=== PATIENT | male | born 2005 | race Caucasian/White ===

== ENCOUNTER 2024-04-16 03:10 | Outpatient (CLI) | payer OTHER, SELFPAY | END 2024-04-16 03:11 | disposition home or self-care (01) | PROVIDERS: Visit Provider Family Medicine | DX: R11.2 Nausea with vomiting, unspecified (principal); R19.7 Diarrhea, unspecified | CPT/HCPCS: A0425; A0427 ==

== ENCOUNTER 2024-04-16 03:39 | Emergency (ER) | payer OTHER, SELFPAY ==
[2024-04-16 03:41] VITALS: BP 108/73; PULSE 98; RESP 18; TEMP 36.8; O2SAT 99; BMI 20.4
[2024-04-16] MEDS: LOPERAMIDE HCL 2 MG CAPSULE 4 MG PO (04:14)
--- NOTE | 2024-04-16 04:16 | ED.GENADULT ---
HPI - General Adult General Chief complaint: Nausea/Vomiting Stated complaint: Nausea and vomitting Time Seen by Provider: 04/16/24 03:44 Source: patient Mode of arrival: EMS Limitations: no limitations History of Present Illness HPI narrative: 19-year-old local college student presents the emergency department by EMS because of nausea and vomiting. No trauma or injury, no abdominal pain. Was given 4 mg of Zofran by EMS and is already feeling a lot better. Had had nausea and vomiting and a couple of bouts of diarrhea over the past 2 hours prior to calling EMS. Housemates with diarrhea as well. No fever. Not any a compromised. No excessive alcohol usage, no regular marijuana use. No prior abdominal surgeries. No bloody stools, bloody vomit. Tried taking a couple of antacid tablets and some Tylenol with no improvement in symptoms. Had been eating and drinking normally up until a couple of hours ago. Interestingly has a history of stroke, no obvious etiology was found. Takes 81 mg aspirin as a result. Thorough workup. No other long-term medications or allergies. ROS is notable for the GI symptoms as above only, otherwise denies times 12 systems. Related Data Home Medications ?Medication ?Instructions ?Recorded ?Confirmed aspirin 81 mg capsule 81 mg PO DAILY 04/16/24 04/16/24 Allergies Allergy/AdvReac Type Severity Reaction Status Date / Time No Known Drug Allergies Allergy Verified 04/16/24 03:45 Exam Const: Vital Signs, click to edit/add: Vital Signs - 24 hr 04/16/24 03:41 Temperature 98.3 F Pulse Rate [Right Pulse Oximeter] 98 Respiratory Rate 18 Blood Pressure [Le ft Upper Arm] 108/73 Pulse Oximetry 99 Oxygen Delivery Me thod Room Air Documenting provider has reviewed patient's vital signs: yes Common normals: no apparent distress and alert General appearance: cooperative and well kempt HENMT: Common normals: normocephalic, moist oral mucous membranes and oropharynx normal Head and scalp: normocephalic Eye: Common normals: conjunctivae normal General eye: normal appearance of both eyes Conjunctiva: conjunctiva(e) normal Neck & C-Spine: General: normal visual inspection Resp: Common normals: normal respiratory effort, no use of accessory muscles and clear to auscultation bilaterally Effort & inspection: able to speak in complete sentences Auscultation: clear to auscultation bilaterally Cardio: Common normals: regular rate, regular rhythm, S1 normal heart sound, S2 normal heart sound and no murmurs Rate: regular rate Rhythm: regular rhythm Heart sounds: S1 normal and S2 normal GI: Common normals: Normal to inspection, nondistended, normoactive bowel sounds present, soft to palpation, non-tender, no hepatosplenomegaly and no masses Inspection: normal to inspection Palpation: soft and no hepatosplenomegaly Extremity: Common normals: normal to inspection and no pedal edema Neuro: Sensorium/orientation: alert Speech: speech normal Motor exam: no movement abnormalities noted Psych: Appearance: well kempt Attitude: engaged Activity/motor behavior: appropriate eye contact Mood and affect: euthymic mood Insight: insight good Judgement: judgment good Skin: Common normals: no rashes or lesions noted General skin exam: no rashes or lesions noted Course Course ED Course: 19-year-old male with nausea vomiting and diarrhea, similar symptoms and household contacts. Suspicious for viral gastroenteritis. Less likely to be pancreatitis, obstructive process, musculoskeletal an aunt, cannabinoid hyperemesis, colitis or other GI abnormality. Patient is doing much better after Zofran. Will perform oral fluid challenge. Give 4 mg of Imodium. If this is successful, we will plan to discharge on Zofran. Would like for him to set an alarm for 6 hours to repeat his dose of Zofran automatically, then p.r.n. as needed afterwards. Will not likely need subsequent Imodium dosing but usage discussed if needed. Push fluids. Alarm symptoms reviewed that would warrant ED presentation. Written instructions provided. Re-evaluate only if needed if fluid challenges unsuccessful. Vital Signs Vital signs: Initial Vital Signs Temperature 98.3 F 04/16/24 03:41 Temperature Source Temporal Artery Scan 04/16/24 03:41 Pulse Rate 98 04/16/24 03:41 Respiratory Rate 18 04/16/24 03:41 Blood Pressure 108/73 04/16/24 03:41 Blood Pressure Mean 84 04/16/24 03:41 Blood Pressure Position Sitting 04/16/24 03:41 Pulse Oximetry 99 04/16/24 03:41 Oxygen Delivery Method Room Air 04/16/24 03:41 Vital Signs Temperature 98.3 F 04/16/24 03:41 Pulse Rate 98 04/16/24 03:41 Respiratory Rate 18 04/16/24 03:41 Blood Pressure 108/73 04/16/24 03:41 Pulse Oximetry 99 04/16/24 03:41 Oxygen Delivery Method Room Air 04/16/24 03:41 Temperature 98.3 F 04/16/24 03:41 Pulse Rate 98 04/16/24 03:41 Respiratory Rate 18 04/16/24 03:41 Blood Pressure 108/73 04/16/24 03:41 Pulse Oximetry 99 04/16/24 03:41 Oxygen Delivery Method Room Air 04/16/24 03:41 Medications Administered Medications: Generic Name Dose Route Start Last Admin Trade Name Freq PRN Reason Stop Dose Admin Loperamide HCl 4 mg 04/16/24 04:12 04/16/24 04:14 Loperamide Hcl 2 Mg Capsule PO 04/16/24 04:13 4 mg ONCE ONE Administration Discharge Plan Discharge Clinical Impression: Gastroenteritis Patient Disposition: Home w/ Parent or Adult Condition: Improved Instructions: Gastroenteritis (DC) Additional Instructions: I am glad that the Zofran was so helpful for you. This is often the case. Most likely your illness was caused by a viral gastroenteritis. We are seeing a lot of this go around right now, specifically the 1 that seems most consistent with norovirus. Symptoms tend to last for 3-5 days. It is important you push fluids. It is okay few do not hold down any solid food for a few days as long as you are drinking enough fluids to keep yourself hydrated. A good way to tell is if you are able to urinate 4 times per day or more. I will give you prescription for some ondansetron also known as Zofran which is an anti nausea medication. You slipped this under the tongue in a dramatically reduces the chance of dehydration. I would set an alarm an automatically take this again at 9:00 a.m., but then after that you can just go to as needed. Plan to take 1 tablet up to every 6 hours. You may also take more Imodium if needed but I often find that a single dose, such as well was given here tonight in the emergency department is sufficient for treatment. But if you continue to have bouts of watery diarrhea, you may use another 2 mg [id number] dose every 2 hours as needed. Often, the Zofran can be a little constipating and therefore more Imodium is rarely needed. If you have bloody diarrhea, bloody vomit, severe high fevers or are so weak that you cannot walk from her bed to the bathroom, you should consider re-evaluation. Otherwise, home from school today and plan to return tomorrow which would be Monday. Wash her hands frequently and try to disinfect your bathroom every few hours, especially if it is shared with other household contacts. Activity Level: Activity as Tolerated Discharge Diet: Regular Prescriptions: No Action aspirin 81 mg capsule 81 mg PO DAILY Stand Alone Forms: [employer] Info Instructions
--- OUTSIDE RECORDS SUMMARY | 2024-04-16 04:25 | XMS_ITS | Clinical Summary ---
Author Organization [facility] Address [address] [place] [address] Care Team Providers Care [employer] Name Role Phone Elsewhere, Pcp Primary Care Provider Unavailabl e Source Comments Patient records contain information from all sites at [facility]. For routine questions regarding patient records, call [phone] during business hours, M-F 8:00 AM - 5:00 PM Central Time. Record requests for emergency care only can be directed to [phone] at any time.[facility] Allergies Active Allergy Reactions Criticality Noted Date Comments Bee Venom Protein (Honey Bee) Anaphylaxis 11/21 Medications aspirin 81 mg chewable tablet CHEW AND SWALLOW 1 TABLET BY MOUTH DAILY 72 tablet 3 02/01/2021 Active Active Problems Problem Noted Date Diagnosed Date Stroke Cerebrovascular Accident Personal History 01/21/2021 Resolved Problems Problem Noted Date Diagnosed Date Resolved Date COVID-19 Infection 07/16/2021 3 Overview (07/16/2021): Patient is a 16-year-old male who 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 At home he has had an oral temperature ranging between 100 and 101 F. He reports a nonproductive cough as well. He has no known sick contacts. He denies shortness of breath, dyspnea on exertion, chest pain, abdominal pain, nausea, vomiting, diarrhea, rash, or other complaints at this time. He has been self treating with ibuprofen and vitamin-C at home. Mother is concerned because prior to his stroke, he complained sore throat. This was his 1st symptom. At this time, he has had significant improvement since his stroke and denies any new symptoms of weakness, numbness, or tingling. It is possible that his previous stroke was associated with limb year syndrome. At this time he denies any pain to his external neck. Physical exam is remarkable for mild erythema of the posterior pharynx and nasal turbinates, clear rhinorrhea, and mildly enlarged right tonsil without exudate. Breath sounds are clear to auscultation bilaterally. Assessment & Plan (07/16/2021 6:56 PM CDT): Patient has sore throat, fever, and nonproductive cough with an at home and in office test positive for COVID-19. These symptoms are consistent with COVID-19 infection and there is no evidence of superimposed bacterial pneumonia, pharyngitis, or Lamierre syndrome at this time. 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 03/15/2021 12/26/2022 Immunizations Immunization Administration Dates Next Due 4vHPV (discontinued) 11/10/2016 9vHPV 12/26/2022,11/10/2016 DTaP / Hep B / IPV (Pediarix) 2004, 005,2004 DTaP / Hib 07/14/2005 DTaP-IPV 08/07/2009 HepA Pediatric/Adolescent 08/07/2009,01/15/2007 Hib (PRP-OMP) (PedvaxHIB) 2004,2004 MCV4 (Menactra)(Discontinued) 11/10/2016 MENACWY-TT (MENQUADFI)(MCV4) 01/19/2022 MMR 08/07/2009,01/12/2005 PCV7 (discontinued) 07/14/2005, 5,2004,2004 Tdap 11/10/2016 JOSE 08/07/2009,01/12/2005 influenza LAIV (Nasal) (2 ye ars through 49 years) 12/24/2013 influenza vaccine quad (FLUZONE/FLUARIX) (6 months and older)(PF) 12/26/2022 Family History Medical History Relation Name Comments Diabetes Grandfather Hypertension Grandfather Relation Name Status Comments Grandfather Social History Tobacco Use Types Packs/Day Years Used Date Smoking Tobacco: Never Smokeless Tobacco: Never Tobacco Cessation:Counseling Given: Yes Alcohol Use Standard Drinks/Week Comments Yes 0 (1 standard drink = 0.6 oz pur e alcohol) not regularly Overall Financial Resource Strain (CARDIA) Answe r Date Recorded How hard is it for you to pa y for the very basics like food, housing, medical care, and heating? Not hard at all 12/26/2022 PHQ-2 Answer Date Recorded PHQ-2 Score 0 10/25/2023 Exercise Vital Sign Answer Date Recorde d On average, how many days pe r week do you engage in moderate to strenuous exercise (like a brisk walk)? 5 days 12/26/2022 On average, how many minutes do you engage in exercise at this level? 40 min 12/26/2022 Hunger Vital Sign Answer Date Recorded Within the past 12 months, y ou worried that your food would run out before you got the money to buy more. Never true 12/27/19 Within the past 12 months, t he food you bought just didn't last and you didn't have money to get more. Never true 12/26/2022 PRAPARE - Transportation Answer Date Re corded In the past 12 months, has l ack of transportation kept you from medical appointments or from getting medications? No 12/11 In the past 12 months, has l ack of transportation kept you from meetings, work, or from getting things needed for daily living? No 12/26/2022 Depression Answer Date Recor ded PHQ-9 Total Score (max 27) 0 10/24 Nutrition Answer Date Recorded On average, how many serving s of fruits and vegetables do you eat per day (serving size is equal to 1 cup or approximately the size of a tennis ball)? 3-5 12/26/2022 Dental Answer Date Recorded Dental: Regular Dentist Yes 12/27/19 Employment Answer Date Recorded Employment status Employed and actively working without restrictions 12/26/2022 Housing Stability Answer Date Recorded What is your living situation today? I have a [facility] [address] to live 12/26/2022 Sex and Gender Information Value Date Recorded Sex Assigned at Male 12/26/2022 11:18 AM CDT Legal Sex Male 3:58 PM [employer] Gender Identity Male 12/26/2022 11:18 AM CDT Sexual Orientation Straight 12/26/2022 11 :18 AM CDT Last Filed Vital Signs Vital Sign Reading Time Taken Comments Blood Pressure 114/69 10/25/2023 9:27 AM CDT Pulse 87 10/25/2023 9:27 AM CDT Temperature 37 C (98.6 F) 10/25/2023 9:27 AM CDT Respiratory Rate 20 10/25/2023 9:27 AM CDT Oxygen Saturation 99% 04/18/2023 7:51 AM [employer] Inhaled Oxygen Concentration - - Weight 60.8 kg (134 lb) 10/25/2023 9:27 AM CDT Height 174.5 cm (5' 8.7) 04/18/2023 7:51 AM [employer] Body Mass Index 19.96 04/18/2023 7:51 AM [employer] Plan of Treatment Health Maintenance Due Date Last Done Comments Hearing Screening during Well Child Visit 2004 Hepatitis C Screening 2004 1 week Well Child Check-Up 2004 1 month Well Child Check-Up 2004 2 month Well Child Check-Up 2004 4 month Well Child Check-Up 2004 6 month Well Child Check-Up 2004 9 month Well Child Check-Up 2004 12 month Well Child Check-Up 2004 15 month Well Child Check-Up 03/10/2005 18 month Well Child Check-Up 06/08/2005 2 year Well Child Check-Up 12/09/2005 30 month Well Child Check-Up 06/08/2006 3 year Well Child Check-Up 12/09/2006 Well Child Check-Up Completed in Past Year 12/09/2006 4 year Well Child Check-Up 12/10/2007 5 year Well Child Check-Up 12/09/2008 6 year Well Child Check-Up 12/09/2009 7 year Well Child Check-Up 12/09/2010 8 year Well Child Check-Up 12/10/2011 9 year Well Child Check-Up 12/09/2012 10 year Well Child Check-Up 12/09/2013 11 year Well Child Check-Up 12/09/2014 12 year Well Child Check-Up 12/10/2015 13 year Well Child Check-Up 12/09/2016 13 year Well Child Check-Up 12/09/2017 Vision Screening during Well Child Visit 01/08/2018 15 year Well Child Check-Up 12/09/2018 15 year Well Child Check-Up 12/10/2019 16 year Well Child Check-Up 12/09/2020 17 year Well Child Check-Up 12/09/2021 TB Screening during Well Child Visit 03/08/2022 03/08/2021 COVID-19 Vaccine ( season) 2023 19 year Well Child Check-Up 12/10/2023 Well Child Check-Up ([employer]) 12/10/2023 Influenza Vaccine (#1) 2023 12/26/2022, 2013 Depression Screening (Annual PHQ-2) 03/13/2024 DTaP,Tdap,and Td Vaccines (7 - Td or Tdap) 11/10/2026 11/10/2016, 08/07/2009, 07/14/2005, Additional history exists Hepatitis B Vaccines Completed 2004, 2004, 2004 Pneumococcal vaccine (0-49 years) Aged Out 07/14/2005, 2004, 2004, Additional history exists No longer eligible based on patient's age to complete this topic IPV Vaccines Completed 08/07/2009, 060 03/2004, 2004, Additional history exists Varicella Vaccines Completed 08/07/2009, 01/12/2005 Meningococcal Vaccine Completed 01/19/2022, 017 18 year Well Child Check-Up Completed 12/26/2022 HPV Vaccines Completed 12/26/2022, 10/13, 11/10/2016 Insurance [facility] [employer] [place] [id number] [address] [phone] [employer] [facility] Advance Directives For more information, please contact: [phone] * Full Code (Latest Code Status on File) Date Activated Date Inactivated Comments 01/21/2021 2:01 AM 02/02/2021 1:17 PM Question Answer Comments Full Code: Not Discussed Due to: Not medically appropriate Care Teams [employer] Relationship Specialty Start Date End Date Elsewhere, Pcp PCP - General 07/04/21
[2024-04-16 04:41] VITALS: BP 112/68; PULSE 85; RESP 18; TEMP 36.8; O2SAT 99
[2024-04-16 04:45] VITALS: BP 112/68; PULSE 85; RESP 18; TEMP 36.8
== END 2024-04-16 04:45 | disposition home or self-care (01) ==
PROVIDERS: Emergency Provider Family Medicine
DX: K52.9 Noninfective gastroenteritis and colitis, unspecified (principal)
CPT/HCPCS: 99283; A9270